=== PATIENT | female | born 1965 | race Caucasian/White ===

== ENCOUNTER 2017-01-06 14:16 | Emergency (ER) | payer OTHER ==
[~2017-01-06] VITALS: Ht 162.6 cm; Wt 87.1 kg
[~2017-01-06 14:16] MED LIST: ALBU8.5H3 IH; ASPI325T17 PO; ATOR10TA PO; BUSP10TA PO; CETI10TA18 PO; CITA40TA12 PO; ESOM40CA PO; FLUT12HF3 IH; FLUT9.9S NS; GABA100C7 PO; IPRA4AER IH; TRAZ150T57 PO; WARF4TAB7 PO
--- NOTE | 2017-01-06 14:29 | NUR ---
ARRIVAL PATIENT ARRIVED TO ED6 VIA W/C, C/O OF SEIZURE LIKE ACTIVITY WHILE AT HOME, ATTEMPTED TO SEE DOCTOR IN [place], WAS SENT TO ED FOR FURTHER EVAL BY EDP, NO DISTRESS NOTED. NO HISTORY OF SEIZURES OR MIGRAINES IN THE PAST.
--- NOTE | 2017-01-06 14:52 | ER.PDOC ---
General Chief Complaint: Seizure Stated Complaint: POSS LYNDAZURE Time seen by MD: 14:50 Source: patient Exam Limitations: no limitations History of Present Illness Initial Comments Migraine headache. Also had generalized muscle spasms this afternoon that has resolved. Severity/Quality: moderate Prior Headaches/Recent Trauma: chronic headaches, occasional headaches Associated Symptoms: denies symptoms Allergies: Coded Allergies: methadone (Verified Allergy, Unknown, Anaphylaxis Shock, 09/23/16) mirtazapine (Verified Allergy, Unknown, Anaphylaxis Shock, 09/23/16) promethazine (Verified Allergy, Unknown, Nausea, 09/23/16) Home Meds Active Scripts Warfarin Sodium (WARFARIN SODIUM) 4 Mg Tablet, 1 TAB PO DAILY for BLOOD THINNER , #30 TAB 2 Refills Prov:KEVEN MAGANA MD 09/25/16 Reported Medications Aspirin (ASPIRIN EC) 325 Mg Tablet.dr, 325 MG PO HS, TABLET 09/23/16 Fluticasone Propionate (Flonase Allergy Relief) 9.9 Ml [place].susp, 9.9 ML NS BID 09/23/16 Ipratropium/Albuterol Sulfate (COMBIVENT RESPIMAT INHAL SPRAY) 4 Gm Aer.w.adap, 4 GM IH QID, INHALER 09/23/16 Albuterol Sulfate (PROAIR HFA) 8.5 Gm Hfa.aer.ad, 8.5 GM IH PRN Y for SHORTNESS OF BREATH 09/23/16 Fluticasone/Salmeterol (ADVAIR HFA 230-21 MCG INHALER) 12 Gm Hfa.aer.ad, 12 GM IH BID 09/23/16 Trazodone Hcl (TRAZODONE HCL) 150 Mg Tablet, 150 MG PO HS, TABLET 09/23/16 Atorvastatin 10MG (LIPITOR 10MG) 10 Mg Tablet, 10 MG PO HS, TAB 09/23/16 Cetirizine Hcl (CETIRIZINE HCL) 10 Mg Tablet, 10 MG PO HS, TABLET 09/23/16 Esomeprazole Magnesium (NEXIUM) 40 Mg Capsule.dr, 40 MG PO HS 09/23/16 Citalopram Hydrobromide (CELEXA) 40 Mg Tablet, 40 MG PO DAILY, TABLET 09/23/16 Gabapentin (GABAPENTIN) 100 Mg Capsule, 200 MG PO BID, CAPSULE 09/23/16 Buspirone Hcl (BUSPIRONE HCL) 10 Mg Tablet, 1 TAB PO TID, TAB 1 Refill 09/23/16 Past Medical History Medical History: CVA/TIA/stroke Surgical History: appendectomy, back, cholecystectomy, hysterectomy, tonsillectomy Social History Smoking: less than 1 pack/day Alcohol Use: none Drug Use: none Review of Systems Constitutional: no symptoms reported Respiratory: no symptoms reported Cardiovascular: no symptoms reported Gastrointestinal: no symptoms reported Musculoskeletal: see HPI All Other Systems: Reviewed and Negative Physical Exam General Appearance: No Apparent Distress, WD/WN Neck: nml inspection, Supple Cardiovascular: Normal Peripheral Pulses, Regular Rate, Rhythm, No Edema, No Gallop, No JVD, No Murmur Respiratory: chest non-tender, lungs clear, normal breath sounds, no respiratory distress, no accessory muscle use Gastrointestinal: Normal Bowel Sounds, No Organomegaly, No Pulsatile Mass, Non Tender, Soft Back: Normal Inspection, No CVA Tenderness, No Vertebral Tenderness Extremities: Normal Range of Motion, Non-Tender, Normal Inspection, No Pedal Edema, No Calf Tenderness, Normal Capillary Refill Psychiatric: Alert, Oriented x 3 Cranial Nerves: Normal Hearing, Normal Speech, PERRL Motor/Sensory: No Motor Deficit, No Sensory Deficit, No Pronator Drift, Negative Babinski's Sign Skin: Warm/Dry, Normal Color Results/Orders Results/Orders Laboratory Tests Test 01/06/17 14:56 White Blood Count 7.4 10^3/uL (4.5-11.0) Red Blood Count 4.37 10^6/uL (4.00-5.20) Hemoglobin 14.4 g/dL (12.0-15.0) Hematocrit 42.9 % (36.0-46.0) Mean Corpuscular Volume 98.2 fL (78-100) Mean Corpuscular Hemoglobin 33.0 pg (26-34) Mean Corpuscular Hemoglobin Concent 33.6 g/dL (33-37) Red Cell Distribution Width 13.2 % (11.5-14.5) Platelet Count 182 10^3/uL (150-400) Mean Platelet Volume 11.4 fL (7.8-11.0) Neutrophils (%) (Auto) 62.3 % (41.0-85.0) Lymphocytes (%) (Auto) 30.4 % (24.0-44.0) Monocytes (%) (Auto) 6.2 % (5.0-12.0) Neutrophils # (Auto) 4.6 10^3/uL (1.8-7.7) Lymphocytes # (Auto) 2.2 10^3/uL (1.0-4.8) Monocytes # (Auto) 0.5 10^3/uL (0.3-0.8) Absolute Immature Granulocyte (auto 0.01 10^3 u/L (0-2) Eosinophils % 0.9 % (0.0-5.0) Basophils % 0.1 % (0.0-0.2) Basophils # 0.0 10^3/uL (0.0-0.1) Eosinophil Count 0.1 10^3/uL (0.0-0.2) Prothrombin Time 38.6 SEC (9.8-11.9) Prothromb Time International Ratio 3.6 Sodium Level 139 mmol/L (132-145) Potassium Level 4.3 mmol/L (3.6-5.2) Chloride Level 106.0 mmol/L (96-109) Carbon Dioxide Level 28.0 mmol/L (20.0-32) Anion Gap 9.3 Blood Urea Nitrogen 9 mg/dL (7-18) Creatinine 0.98 mg/dL (0.59-1.40) Estimated GFR () 72.7 BUN/Creatinine Ratio 9.0 Glucose Level 114 mg/dL (70-110) Calculated Osmolality 287.2 Calcium Level 8.5 mg/dL (8.4-10.5) Total Bilirubin 0.3 mg/dL (0.2-1.0) Aspartate Amino Transf (AST/SGOT) 65 U/L (0-35) Alanine Aminotransferase (ALT/SGPT) 56 U/L (12-78) Alkaline Phosphatase 88 U/L (50-136) Total Creatine Kinase 154 U/L (26-192) Total Protein 7.5 g/dL (6.4-8.2) Albumin 3.6 g/dL (3.4-5.0) Globulin 3.9 Percent Immature Gran (Cell Imm) 0.10 % (0.00-0.50) Administered Medications Medications (Trade) Dose Ordered Sig/Juan Jose Route PRN Reason Start Time Stop Time Status Last Admin Dose Admin Ketorolac Tromethamine (Toradol) 60 mg OT ONCE IM 5/24/17 15:00 01/06/17 15:01 DC 01/06/17 15:11 EKG/XRAY/CT/US CT Comments: No acute abnormality on CT head Departure Time of Disposition: 15:59 Disposition: 01 HOME, SELF-CARE Impression: Primary Impression: Migraine headache Qualified Codes: G43.911 - Migraine, unspecified, intractable, with status migrainosus Condition: Stable Referrals: DEL WADSWORTH (PCP) PRIMARY CARE PROVIDER Additional Instructions: Continue home medications F/U with your PCP in 2-3 days ERICK PHELPS MD January 06, 2017 14:52
[2017-01-06] MEDS ORDERED: TORADOL ONE (14:56)
[2017-01-06] MEDS ORDERED: TORADOL IM ONE (15:00)
[2017-01-06 15:01] LABS: BASOPHIL % 0.1 % (0.0-0.2); EOSINOPHIL # 0.1 10^3/uL (0.0-0.2); EOSINOPHIL % 0.9 % (0.0-5.0); HEMATOCRIT 42.9 % (36.0-46.0); HEMOGLOBIN 14.4 g/dL (12.0-15.0); LYMPHOCYTES # 2.2 10^3/uL (1.0-4.8); LYMPHOCYTES % 30.4 % (24.0-44.0); MEAN CELL HGB CONCENTRATION 33.6 g/dL (33-37); MEAN CORP VOLUME 98.2 fL (78-100); MEAN PLATELET VOLUME 11.4 fL (7.8-11.0); MONOCYTES # 0.5 10^3/uL (0.3-0.8); MONOCYTES % 6.2 % (5.0-12.0); NEUTROPHIL # 4.6 10^3/uL (1.8-7.7); NEUTROPHILS % 62.3 % (41.0-85.0); RED CELL DISTRIBUTION WIDTH 13.2 % (11.5-14.5); WHITE BLOOD CELL 7.4 10^3/uL (4.5-11.0)
--- NOTE | 2017-01-06 15:07 | NUR ---
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
--- NOTE | 2017-01-06 15:10 | DIREP ---
PROCEDURE:CT HEAD OR BRAIN W/O CONTRAST COMPARISON:[facility], CT, CT HEAD BRAIN W/O CONTRAST, 09/23/2016, 04:06 PM. INDICATIONS:Headache TECHNIQUE:CT images were created without intravenous contrast. FINDINGS: VENTRICLES:The ventricles are normal in size and configuration. CEREBRUM:Normal cerebral morphology with appropriate dodson white matter differentiation. CEREBELLUM:Negative. BRAINSTEM:Negative. BASAL CISTERNS:Negative. HEMORRHAGE:No MASS LESION:No ACUTE INFARCT:No SKULL:Normal. SINUSES:Normal. OTHER:None CONCLUSION:Normal examination. There is no significant change as compared with the previous examination. Dictated by: Chava Coon M.D. on 01/06/2017 at 03:08 PM
[2017-01-06 15:21] LABS: CALCIUM 8.5 mg/dL (8.4-10.5)
[2017-01-06] MEDS ORDERED: NORCO 7.5MG PO STA (16:01)
[2017-01-06] MEDS ORDERED: NORCO 7.5MG PO ONE (16:07)
[2017-01-06 16:20] VITALS: BP 126/67
== END 2017-01-06 16:20 | disposition home or self-care (01) ==
LOC: ER 14:16
DX: G43.909 Migraine, unspecified, not intractable, without status migrainosus (principal); F17.200 Nicotine dependence, unspecified, uncomplicated; Z79.01 Long term (current) use of anticoagulants; Z79.82 Long term (current) use of aspirin; Z86.73 Personal history of transient ischemic attack (TIA), and cerebral infarction without residual deficits; Z90.49 Acquired absence of other specified parts of digestive tract; Z79.899 Other long term (current) drug therapy; Z88.8 Allergy status to other drugs, medicaments and biological substances
CPT/HCPCS: 36415; 70450; 80053; 82550; 85025; 85610; 96372; 99285; J1885

== ENCOUNTER 2018-07-02 13:53 | Emergency (ER) | payer OTHER ==
[~2018-07-02] VITALS: Ht 160 cm; Wt 90.7 kg
[~2018-07-02 13:53] MED LIST changes: -ALBU8.5H3 IH; +ALBU8.5H7 IH; +WARF4TAB65 PO; -WARF4TAB7 PO
[2018-07-02 14:09] VITALS: BP 142/78
--- NOTE | 2018-07-02 14:10 | NUR ---
ARRIVAL PATIENT ARRIVED TO ED5 AMBULATORY WITH FAMILY, C/O OF RIGHT WRIST INJURY TODAY, PATIENT STATES SHE WAS DOING LAUNDRY AND FELT A "POP". HAS A HISTORY OF A FRACTURE IN THE PAST, CAME TO THE ED FOR FURTHER EVAL AND XRAY.
--- NOTE | 2018-07-02 14:18 | ER.PDOC ---
General Chief Complaint: Extremities Stated Complaint: RIGHT WRIST INJURY Time seen by MD: 14:00 Source: patient Exam Limitations: no limitations History of Present Illness Occurred: just prior to arrival Where: home Severity: moderate Context: fall Location of Injury: (R) wrist Allergies: Coded Allergies: methadone (Verified Allergy, Unknown, Anaphylaxis Shock, 09/23/16) mirtazapine (Verified Allergy, Unknown, Anaphylaxis Shock, 09/23/16) promethazine (Verified Allergy, Unknown, Nausea, 09/23/16) Home Meds Active Scripts Warfarin Sodium (WARFARIN SODIUM) 4 Mg Tablet, 1 TAB PO DAILY for BLOOD THINNER , #30 TAB 2 Refills Prov:KEVEN MAGANA MD 09/25/16 Reported Medications Aspirin (ASPIRIN EC) 325 Mg Tablet.dr, 325 MG PO HS, TABLET 09/23/16 Fluticasone Propionate (Flonase Allergy Relief) 9.9 Ml [place].susp, 9.9 ML NS BID 09/23/16 Ipratropium/Albuterol Sulfate (COMBIVENT RESPIMAT INHAL SPRAY) 4 Gm Aer.w.adap, 4 GM IH QID, INHALER 09/23/16 Albuterol Sulfate (PROAIR HFA) 8.5 Gm Hfa.aer.ad, 8.5 GM IH PRN PRN for SHORTNESS OF BREATH 09/23/16 Fluticasone/Salmeterol (ADVAIR HFA 230-21 MCG INHALER) 12 Gm Hfa.aer.ad, 12 GM IH BID 09/23/16 Trazodone Hcl (TRAZODONE HCL) 150 Mg Tablet, 150 MG PO HS, TABLET 09/23/16 Atorvastatin 10MG (LIPITOR 10MG) 10 Mg Tablet, 10 MG PO HS, TAB 09/23/16 Cetirizine Hcl (CETIRIZINE HCL) 10 Mg Tablet, 10 MG PO HS, TABLET 09/23/16 Esomeprazole Magnesium (NEXIUM) 40 Mg Capsule.dr, 40 MG PO HS 09/23/16 Citalopram Hydrobromide (CELEXA) 40 Mg Tablet, 40 MG PO DAILY, TABLET 09/23/16 Gabapentin (GABAPENTIN) 100 Mg Capsule, 200 MG PO BID, CAPSULE 09/23/16 Buspirone Hcl (BUSPIRONE HCL) 10 Mg Tablet, 1 TAB PO TID, TAB 1 Refill 09/23/16 Past Medical History Medical History: CVA/TIA/stroke, cardiac problems, other Surgical History: appendectomy, back, cholecystectomy, hysterectomy, other Social History Smoking: non-smoker, cigarettes Alcohol Use: none Drug Use: none Reviewed Nursing Reviewed: Vital Signs, Abn. Noted Review of Systems All Other Systems: Reviewed and Negative Physical Exam General Appearance: Alert, No Apparent Distress Hand: nml inspection, non-tender, no evidence FB Wrist: see diagram, tenderness, swelling, limited ROM by pain Neuro: sensation nml, motor nml Vascular: no vascular compromise Tendons: tendon function nml Forearm/Elbow/Arm: uninjured above wrist Skin: warm/dry Head/ENT: nml inspection, pharynx nml Neck/Back: nml inspection, non-tender Resp/CVS: no resp distress, lungs clear, heart sounds nml, reg. rate & rhythm Abdomen: non-tender, no organomegaly Departure Time of Disposition: 15:00 Disposition: 01 HOME, SELF-CARE Impression: Primary Impression: De Quervain's disease (tenosynovitis) Condition: Stable Referrals: DEL WADSWORTH (PCP) PRIMARY CARE PROVIDER Duration or Time Spent with Pa: 30 min CLIFF SINGH MD Jul 02, 2018 14:18
[2018-07-02 14:56] VITALS: BP 126/84
[2018-07-02 14:57] VITALS: BP 126/84
--- NOTE | 2018-07-02 15:10 | DIREP ---
PROCEDURE:XRAY WRIST MIN 3VW-RT COMPARISON:None. INDICATIONS:INJURY FINDINGS: BONES:Normal. JOINTS:Normal. SOFT TISSUES:Soft tissue swelling anterior lateral aspect of the wrist and distal forearm. OTHER:No additional findings. CONCLUSION:Soft tissue swelling with no evidence of acute bony injury or arthritic change in the right wrist. Dictated by: Skyler Yanez M.D. on 07/02/2018 at 03:09 PM
== END 2018-07-02 15:04 | disposition home or self-care (01) ==
LOC: ER 13:53
DX: M65.4 Radial styloid tenosynovitis [de Quervain] (principal); F17.210 Nicotine dependence, cigarettes, uncomplicated; Z90.49 Acquired absence of other specified parts of digestive tract; Z90.710 Acquired absence of both cervix and uterus; Z86.73 Personal history of transient ischemic attack (TIA), and cerebral infarction without residual deficits; Z98.890 Other specified postprocedural states; Z79.82 Long term (current) use of aspirin; Z79.899 Other long term (current) drug therapy; Z79.01 Long term (current) use of anticoagulants; Z88.8 Allergy status to other drugs, medicaments and biological substances
CPT/HCPCS: 99284; 73110-RT

== ENCOUNTER 2022-04-28 15:54 | Emergency (ER) | payer OTHER ==
[~2022-04-28] VITALS: Ht 160 cm; Wt 88.9 kg
--- NOTE | 2022-04-28 16:10 | NUR ---
ARRIVAL PT ARRIVED AMBULATORY TO ED 6 WITH C/O HER MIND GOING BLANK. PT THINKS SHE IS HAVING A TIA. PT HAS HAD A PREVIOUS TIA. VITALS TAKEN AND DR NOTIFIED.
[2022-04-28 16:18] VITALS: BP 137/80
[2022-04-28] MEDS ORDERED: TORADOL IM STA (16:31)
--- NOTE | 2022-04-28 16:37 | PCM.EKG ---
[facility] Test Date: 2022-04-28 Test Time: 16:28:01 Pat Name: RHYS CALDERON Department: Patient ID: [id number] Room: Gender: F Business Support Administrator: IZZY : 1965 Requested By: ERICK PHELPS Order Number: [id number] Reading MD: Erick PHELPS Measurements Intervals [place] Rate: 66 P: 26 WI: 188 QRS: 49 QRSD: 88 T: 72 QT: 416 QTc: 436 Interpretive Statements Sinus rhythm Baseline wander in lead(s) V6 No previous ECG available for comparison Electronically Signed On 04-30-2022 9:48:54 CDT by Erick PHELPS Please click the below link to view image of tracing.
[2022-04-28] MEDS ORDERED: TORADOL ONE (16:39)
--- NOTE | 2022-04-28 16:55 | DIREP ---
PROCEDURE:CT HEAD OR BRAIN W/O CONTRAST COMPARISON:[facility], CT, CT HEAD BRAIN W/O CONTRAST, 01/06/2017, 02:55 PM. INDICATIONS:Blurred vision TECHNIQUE:CT images were created without intravenous contrast. FINDINGS: VENTRICLES:The ventricles are normal in size and configuration. CEREBRUM:Normal cerebral morphology with appropriate dodson white matter differentiation. CEREBELLUM:Negative. BRAINSTEM:Negative. BASAL CISTERNS:Negative. HEMORRHAGE (Vol L*W*H*.52):No MASS LESION:No ACUTE INFARCT:No SKULL:Normal. SINUSES:Normal. OTHER:None CONCLUSION:Normal examination. There is no significant change as compared with the previous examination. Dictated by: Guerrero Garcia M.D. on 04/28/2022 at 04:52 PM
--- NOTE | 2022-04-28 17:06 | ER.PDOC ---
General Chief Complaint: General Complaint Stated Complaint: BLURRED VISION TRAVEL OUT OF US: No Time seen by MD: 17:01 Source: patient Exam Limitations: no limitations History of Present Illness Initial Comments Patient complains that she had blurred vision and was not able to get her memory to coordinate changing of oxygen tank of her . No chest pain or shortness of breath. She is perfectly back to her baseline. Timing/Duration: 4-6 hours Severity: mild Associated Symptoms: headaches Allergies: Coded Allergies: methadone (Verified Allergy, Unknown, Anaphylaxis Shock, 09/23/16) mirtazapine (Verified Allergy, Unknown, Anaphylaxis Shock, 09/23/16) promethazine (Verified Allergy, Unknown, Nausea, 09/23/16) Home Meds Active Scripts Warfarin Sodium (WARFARIN SODIUM) 4 Mg Tablet, 1 TAB PO DAILY for BLOOD THINNER, #30 TAB 2 Refills Prov:KEVEN MAGANA MD 09/25/16 Reported Medications Aspirin (ASPIRIN EC) 325 Mg Tablet.dr, 325 MG PO HS, TABLET 09/23/16 Fluticasone Propionate (Flonase Allergy Relief) 9.9 Ml [place].susp, 9.9 ML NS BID 09/23/16 Ipratropium/Albuterol Sulfate (COMBIVENT RESPIMAT INHAL SPRAY) 4 Gm Aer.w.adap, 4 GM IH QID, INHALER 09/23/16 Albuterol Sulfate (PROAIR HFA) 8.5 Gm Hfa.aer.ad, 8.5 GM IH PRN PRN for SHORTNESS OF BREATH 09/23/16 Fluticasone/Salmeterol (ADVAIR HFA 230-21 MCG INHALER) 12 Gm Hfa.aer.ad, 12 GM IH BID 09/23/16 Trazodone Hcl (TRAZODONE HCL) 150 Mg Tablet, 150 MG PO HS, TABLET 09/23/16 Atorvastatin 10MG (LIPITOR 10MG) 10 Mg Tablet, 10 MG PO HS, TAB 09/23/16 Cetirizine Hcl (CETIRIZINE HCL) 10 Mg Tablet, 10 MG PO HS, TABLET 09/23/16 Esomeprazole Magnesium (NEXIUM) 40 Mg Capsule.dr, 40 MG PO HS 09/23/16 Citalopram Hydrobromide (CELEXA) 40 Mg Tablet, 40 MG PO DAILY, TABLET 09/23/16 Gabapentin (GABAPENTIN) 100 Mg Capsule, 200 MG PO BID, CAPSULE 09/23/16 Buspirone Hcl (BUSPIRONE HCL) 10 Mg Tablet, 1 TAB PO TID, TAB 1 Refill 09/23/16 Past Medical History Medical History: CVA/TIA/stroke, high cholesterol, hypertension Surgical History: no surgical history Family History Significant Family History: no pertinent family hx Social History Smoking: non-smoker Alcohol Use: none Drug Use: none Review of Systems Constitutional: no symptoms reported EENTM: no symptoms reported Respiratory: no symptoms reported Cardiovascular: no symptoms reported Gastrointestinal: no symptoms reported Psychiatric/Neurological: see HPI All Other Systems: Reviewed and Negative Physical Exam General Appearance: No Apparent Distress, WD/WN EENT: eyes nml inspection, nml ENT inspection Neck: Non-Tender, Full Range of Motion, Supple, Normal Inspection Respiratory: chest non-tender, lungs clear, normal breath sounds, no respiratory distress CVS: reg rate & rhythm, no murmur, no gallop, pulses nml, nml capillary refill Gastrointestinal: Normal Bowel Sounds, No Organomegaly, No Pulsatile Mass, Non Tender Back: Normal Inspection, No CVA Tenderness Extremities: Normal Range of Motion, Non-Tender, Normal Inspection 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, No Motor/Sensory Deficits, Alert, Normal Mood/Affect Skin: Normal Color Results/Orders Results/Orders Orders - ERICK PHELPS MD Cbc With Auto Diff (04/28/22 16:30) Comprehensive Metabolic Panel (04/28/22 16:30) Ekg-Routine (04/28/22 16:30) Troponin I High Sensitivity (04/28/22 16:30) Ct Head Wo Contrast (04/28/22 16:30) Ketorolac Tromethamine (Toradol) (04/28/22 16:31) Ketorolac Tromethamine (Toradol) (04/28/22 16:39) Vital Signs Date Time Temp Pulse Resp B/P (MAP) Pulse Ox O2 Delivery O2 Flow Rate FiO2 04/28/22 16:18 98.6 62 18 137/80 (99) 94 Room Air* 0 21 04/28/22 16:18 98.6 62 18 94 04/28/22 16:18 98.6 62 18 Administered Medications Medications (Trade) Dose Ordered Sig/Juan Jose Route PRN Reason Start Time Stop Time Status Last Admin Dose Admin Ketorolac Tromethamine (Toradol) 60 mg STAT STAT IM 04/28/22 16:31 04/28/22 16:32 DC 04/28/22 16:41 60 MG Laboratory Tests Test 04/28/22 17:40 White Blood Count 6.4 10^3/uL (4.5-11.0) Red Blood Count 3.90 10^6/uL (4.00-5.20) L Hemoglobin 13.3 g/dL (12.0-15.0) Hematocrit 40.5 % (36.0-46.0) Mean Corpuscular Volume 103.8 fL (78-100) H Mean Corpuscular Hemoglobin 34.1 pg (26-34) H Mean Corpuscular Hemoglobin Concent 32.8 g/dL (33-36.5) L Red Cell Distribution Width 12.7 % (11.5-14.5) Platelet Count 170 10^3/uL (150-400) Mean Platelet Volume 11.1 fL (7.8-11.0) H Neutrophils (%) (Auto) 46.3 % (41.0-85.0) Lymphocytes (%) (Auto) 45.9 % (24.0-44.0) H Monocytes (%) (Auto) 5.7 % (5.0-12.0) Neutrophils # (Auto) 3.0 10^3/uL (1.8-7.7) Lymphocytes # (Auto) 2.92 10^3/uL1 (1.0-4.8) Monocytes # (Auto) 0.4 10^3/uL (0.3-0.8) Absolute Immature Granulocyte (auto 0.01 10^3 u/L (0-2) Absolute Eosinophils (auto) 0.1 10^3/uL (0.0-0.2) Immature Granulocytes % 0.20 % (0.00-0.50) Eosinophils % 1.4 % (0.0-5.0) Basophils % 0.5 % (0.0-0.2) H Basophils # 0.0 10^3/uL (0.0-0.1) Sodium Level 143 mmol/L (132-145) Potassium Level 3.9 mmol/L (3.6-5.2) Chloride Level 106.0 mmol/L (96-109) Carbon Dioxide Level 32.8 mmol/L (20.0-32) H Anion Gap 8.1 Blood Urea Nitrogen 14 mg/dL (7-18) Creatinine 1.20 mg/dL (0.59-1.40) Estimated GFR () 56.4 (>/=60) Est GFR (CKD-EPI)(Non-Afr [place]i) 46.6 (>/=60) BUN/Creatinine Ratio 11.0 Glucose Level 130 mg/dL (70-110) H Calcium Level 8.8 mg/dL (8.4-10.5) Total Bilirubin 0.2 mg/dL (0.2-1.0) Aspartate Amino Transferase (AST) 42 U/L (0-35) H Alanine Aminotransferase (ALT) 38 U/L (12-78) Alkaline Phosphatase 93 U/L (50-136) Troponin I High Sensitivity 31 ng/L (0-50) Total Protein 7.0 g/dL (6.4-8.2) Albumin 3.5 g/dL (3.4-5.0) Globulin 3.5 Albumin/Globulin Ratio 1.[address] head shows no acute intracranial abnormality. Chemistry show CO2 of 32.8, glucose of 130, AST of 42, rest of chemistry is unremarkable. Troponin is normal. CBC is unremarkable. Patient continues to be at her baseline and feels good to go home. I gave her an option of observing her in the hospital but she declined telling me that she feels good to go home. She understand that she can always come back if she feels worse. EKG/XRAY/CT/US EKG: NSR EKG Comments: HR 66, normal P axis ER DEPART Departure Time of Disposition: 18:23 Disposition: 01 HOME / SELF CARE / HOMELESS Impression: Primary Impression: Headache Additional Impression: Blurred vision Condition: Improved Referrals: DEL WADSWORTH (PCP) PRIMARY CARE PROVIDER Additional Instructions: Tylenol Follow-up with your PCP in 1 to 2 days Return to ED if worsening or concerns Duration or Time Spent with Pa: 30 min Problem Qualifiers Primary Impression: Headache Headache type: unspecified Headache chronicity pattern: acute headache Intractability: not intractable Qualified Codes: R51.9 - Headache, unspecified ERICK PHELPS MD Apr 28, 2022 17:06
[2022-04-28 17:44] LABS: BASOPHIL % 0.5 % (0.0-0.2); EOSINOPHIL # 0.1 10^3/uL (0.0-0.2); EOSINOPHIL % 1.4 % (0.0-5.0); LYMPHOCYTES # 2.92 10^3/uL1 (1.0-4.8); LYMPHOCYTES % 45.9 % (24.0-44.0); MEAN CORP HGB 34.1 pg (26-34); MONOCYTES # 0.4 10^3/uL (0.3-0.8); MONOCYTES % 5.7 % (5.0-12.0); NEUTROPHILS % 46.3 % (41.0-85.0); PLATELET COUNT 170 10^3/uL (150-400); RED CELL DISTRIBUTION WIDTH 12.7 % (11.5-14.5)
[2022-04-28 18:07] LABS: CARBON DIOXIDE 32.8 mmol/L (20.0-32)
== END 2022-04-28 18:29 | disposition home or self-care (01) ==
LOC: ER 15:54
DX: H53.8 Other visual disturbances (principal); I10 Essential (primary) hypertension; E78.00 Pure hypercholesterolemia, unspecified; R51.9 Headache, unspecified; Z86.73 Personal history of transient ischemic attack (TIA), and cerebral infarction without residual deficits; Z79.51 Long term (current) use of inhaled steroids; Z79.01 Long term (current) use of anticoagulants; Z79.899 Other long term (current) drug therapy
CPT/HCPCS: 99285; 70450; 96372; 80053; 85025; 36415; 84484; 93005; J1885

== ENCOUNTER → 2023-11-11 | Outpatient (CLI) | payer OTHER | END | disposition home or self-care (01) | LOC: RAD 10:25 | PROVIDERS: ATTEND Nurse Practitioner Family | DX: S99.911A Unspecified injury of right ankle, initial encounter (principal); S93.401A Sprain of unspecified ligament of right ankle, initial encounter; M25.471 Effusion, right ankle; M77.31 Calcaneal spur, right foot; X58.XXXA Exposure to other specified factors, initial encounter; Y93.89 Activity, other specified; Y92.89 Other specified places as the place of occurrence of the external cause; Y99.8 Other external cause status | CPT/HCPCS: 73610-RT ==